=== PATIENT | female | born 1980 | race American Indian/Alaskan Native ===

== ENCOUNTER 2019-07-24 01:30 | Emergency (ER) | payer BC ==
[2019-07-24 03:07] LABS: Hematocrit 26.8 % (30.3-42.9); Hemoglobin 8.1 gm/dl (10.1-14.3); Mean Corpuscular HGB Conc 30 % (30-34); Red Blood Count 4.47 M/mm3 (3.65-5.03)
[2019-07-24 03:14] LABS: BUN/Creatinine Ratio 14; Blood Urea Nitrogen 10 mg/dL (7-17); Calcium 9.2 mg/dL (8.4-10.2); Hemolysis Index 2
[2019-07-24 03:42] LABS: Bacteria,Urine 1+ /HPF (Negative); Bilirubin,Urine NEG (Negative); Blood,Urine NEG (Negative); Color,Urine Yellow (Yellow); Mucus,Urine 3+ /HPF
[2019-07-24 03:43] LABS: Alanine Aminotransferase 6 units/L (7-56); Albumin 4.4 g/dL (3.9-5)
[2019-07-24] MEDS ORDERED: TYLENOL PO ONE (03:43)
[2019-07-24 03:44] LABS: Bilirubin,Direct < 0.2 mg/dL (0-0.2)
--- NOTE | 2019-07-24 04:13 | Emergency Department Report ---
ED Female HPI - General Chief complaint: Vaginal Bleeding Stated complaint: ABD AND BACK PAIN Source: patient Mode of arrival: Ambulatory Limitations: No Limitations - History of Present Illness Initial comments: Patient is a A1 39-year-old -[place] female with a history of hypertension who presents to the ED with complaint of acute onset persistent diffuse lower abdominal pain and vaginal bleeding for the last 12 hours. Patient states that the bleeding was initially very heavy with blood clots and subsequently became mild and just spotting. Patient states that the pain has been persistent since the onset of the bleeding. Patient states that her last major cycle was 06/05/2019 and that she is sexually active and unsure whether she is or not. Patient denies dizziness, headache, chest pain, shortness of breath, nausea, vomiting, diarrhea, cough, sore throat, dysuria, urinary frequency and urgency and vaginal discharge or low back pain. MD Complaint: vaginal bleeding, pelvic pain -: Sudden, hour(s) (12) Location: suprapubic Radiation: non-radiating Severity: severe Severity scale (0 -10): 7 Quality: cramping, sharp, aching Consistency: constant Improves with: none Worsens with: none Are you Now?: No Last Menstrual Period: 06/04/19 EDC: 03/10/20 Associated Symptoms: denies other symptoms, vaginal bleeding, abdominal pain, nausea/vomiting. denies: vaginal discharge, fever/chills, headaches, loss of appetite, dysuria, hematuria, seizure, shortness of breath, syncope, weakness - Related Data Sexually active: Yes : 7 Para: 6 A: 1 Previous Rx's Medication Instructions Recorded Last Taken Type Ferrous Sulfate [Feosol] 325 mg PO QDAY #30 tablet 07/16/16 Unknown Rx Lisinopril [Zestril TAB] 20 mg PO QDAY #30 tablet 07/16/16 Unknown Rx ALBUTEROL Inhaler (OR & NICU) 2 puff IH QID PRN #1 inhalation 09/12/16 Unknown Rx [ProAir HFA Inhaler] Benzonatate [Tessalon Perles] 100 mg PO Q8HR #20 capsule 09/12/16 Unknown Rx HYDROcodone/APAP 5-325 [Moore 1 each PO Q6HR PRN #12 tablet 09/12/16 Unknown Rx 5/325] Nitrofurantoin Bradford/M-Cryst 100 mg PO Q12HR #14 capsule 09/12/16 Unknown Rx [Macrobid CAP] Ibuprofen [Motrin] 600 mg PO Q8H PRN #24 tablet 07/24/19 Unknown Rx Ondansetron [Zofran Odt] 4 mg PO Q6HR PRN #15 tab.rapdis 07/24/19 Unknown Rx cephALEXin [Keflex] 500 mg PO Q8HR #30 cap 07/24/19 Unknown Rx raNITIdine HCl [Zantac] 150 mg PO Q12H #24 tablet 07/24/19 Unknown Rx Allergies Allergy/AdvReac Type Severity Reaction Status Date / Time No Known Allergies Allergy Verified 07/15/16 21:52 ED Review of Systems ROS: Stated complaint: ABD AND BACK PAIN Other details as noted in HPI Constitutional: denies: chills, fever Eyes: denies: eye pain, eye discharge, vision change ENT: denies: ear pain, throat pain Respiratory: denies: cough, shortness of breath, wheezing Cardiovascular: denies: chest pain, palpitations Endocrine: no symptoms reported Gastrointestinal: abdominal pain, nausea. denies: diarrhea Genitourinary: abnormal menses (vaginal bleeding and pain). denies: urgency, dysuria, discharge Musculoskeletal: denies: back pain, joint swelling, arthralgia Skin: denies: rash, lesions Neurological: denies: headache, weakness, paresthesias Psychiatric: denies: anxiety, depression Hematological/Lymphatic: denies: easy bleeding, easy bruising ED Past Medical Hx - Past Medical History Previous Medical History?: Yes Hx Hypertension: Yes (Not taken meds in several months.) Additional medical history: Anemia secondary to heavy menstrual cycle quit taking her iron - Surgical History Past Surgical History?: Yes Additional Surgical History: D&C - Social History Smoking Status: Current Every Day Smoker Substance Use Type: None - Medications Home Medications: Home Medications Medication Instructions Recorded Confirmed Last Taken Type Ferrous Sulfate [Feosol] 325 mg PO QDAY #30 tablet 07/16/16 Unknown Rx Lisinopril [Zestril TAB] 20 mg PO QDAY #30 tablet 07/16/16 Unknown Rx ALBUTEROL Inhaler (OR & NICU) 2 puff IH QID PRN #1 inhalation 09/12/16 Unknown Rx [ProAir HFA Inhaler] Benzonatate [Tessalon Perles] 100 mg PO Q8HR #20 capsule 09/12/16 Unknown Rx HYDROcodone/APAP 5-325 [Moore 1 each PO Q6HR PRN #12 tablet 09/12/16 Unknown Rx 5/325] Nitrofurantoin Bradford/M-Cryst 100 mg PO Q12HR #14 capsule 09/12/16 Unknown Rx [Macrobid CAP] Ibuprofen [Motrin] 600 mg PO Q8H PRN #24 tablet 07/24/19 Unknown Rx Ondansetron [Zofran Odt] 4 mg PO Q6HR PRN #15 tab.rapdis 07/24/19 Unknown Rx cephALEXin [Keflex] 500 mg PO Q8HR #30 cap 07/24/19 Unknown Rx raNITIdine HCl [Zantac] 150 mg PO Q12H #24 tablet 07/24/19 Unknown Rx ED Physical Exam - General Limitations: No Limitations General appearance: alert, in no apparent distress - Head Head exam: Present: atraumatic, normocephalic, normal inspection - Eye Eye exam: Present: normal appearance, PERRL, EOMI Pupils: Present: normal accommodation - ENT ENT exam: Present: normal exam, normal orophraynx, mucous membranes moist, TM's normal bilaterally, normal external ear exam - Neck Neck exam: Present: normal inspection, full ROM - Respiratory Respiratory exam: Present: normal lung sounds bilaterally. Absent: respiratory distress, wheezes, chest wall tenderness, accessory muscle use, decreased breath sounds, prolonged expiratory - Cardiovascular Cardiovascular Exam: Present: regular rate, normal rhythm, normal heart sounds. Absent: systolic murmur, diastolic murmur, rubs, gallop - GI/Abdominal GI/Abdominal exam: Present: soft, tenderness (mildly diffuse lower abdominal tenderness), normal bowel sounds. Absent: guarding, rebound, hyperactive bowel sounds, mass - Bi-manual exam: Present: other (deferred pelvic exam) - Extremities Exam Extremities exam: Present: normal inspection, full ROM, normal capillary refill - Back Exam Back exam: Present: normal inspection, full ROM. Absent: tenderness, CVA tenderness (L), muscle spasm, vertebral tenderness - Neurological Exam Neurological exam: Present: alert, oriented X3, CN II-XII intact, normal gait, reflexes normal - Psychiatric Psychiatric exam: Present: normal affect, normal mood - Skin Skin exam: Present: warm, dry, intact, normal color. Absent: rash ED Course Vital Signs 07/24/19 04:26 Temperature 98.7 F Pulse Rate 68 Respiratory 16 Rate Blood Pressure 124/78 [Left] O2 Sat by Pulse 100 Oximetry - Reevaluation(s) Reevaluation #1: 07/24/19 06:10 This is a 39-year-old -[place] female who presents to the ED with heavy vaginal bleeding and dysmenorrhea for 12 hours. In the ED, patient is alert and oriented 3 and is not in distress. Lab test results are reviewed and show chronic anemia characterized by hemoglobin of 8.1, hematocrit of 26.8 and MCV of 60. The rest of the lab test results are unremarkable including serum hCG test, except for urinalysis that showed significant urinary tract infection. Patient was treated in the ED with pain medication Tylenol and on reevaluation, patient's pain is well controlled with medication, patient sleeping comfortably in the room in no distress. Patient's symptoms are due to dysmenorrhea. Patient was discharged home on antibiotics for acute urinary tract infection and pain medications and advised to follow-up with her primary care physician in 3- 5 days for reevaluation or return to the ED immediately if symptoms get worse. ED Medical Decision Making - Lab Data Result diagrams: 07/24/19 02:32 07/24/19 02:32 - Medical Decision Making This is a 39-year-old -[place] female who presents to the ED with heavy vaginal bleeding and dysmenorrhea for 12 hours. In the ED, patient is alert and oriented 3 and is not in distress. Lab test results are reviewed and show chronic anemia characterized by hemoglobin of 8.1, hematocrit of 26.8 and MCV of 60. The rest of the lab test results are unremarkable including serum hCG test, except for urinalysis that showed significant urinary tract infection. Patient was treated in the ED with pain medication Tylenol and on reevaluation, patient's pain is well controlled with medication, patient sleeping comfortably in the room in no distress. Patient's symptoms are due to dysmenorrhea. Patient was discharged home on antibiotics for acute urinary tract infection and pain medications and advised to follow-up with her primary care physician in 3- 5 days for reevaluation or return to the ED immediately if symptoms get worse. - Differential Diagnosis Dysmenorrhea; acute UTI; chronic iron deficiency anemia Critical care attestation.: If time is entered above; I have spent that time in minutes in the direct care of this critically ill patient, excluding procedure time. ED Disposition Clinical Impression: Nausea and vomiting in adult patient, Acute urinary tract infection, Dysmenorrhea, Chronic iron deficiency anemia Abdominal pain Qualifiers: Abdominal location: generalized Qualified Code(s): R10.84 - Generalized abdominal pain Disposition: TO HOME OR SELFCARE Is pt being admited?: No Does the pt Need Aspirin: No Condition: Stable Instructions: Dysmenorrhea (ED), Urinary Tract Infection in Women (ED) Additional Instructions: Take medication with food, drink plenty of fluids and follow-up with your primary care physician in 7-10 days for reevaluation. Return to the ED immediately if symptoms get worse. Prescriptions: cephALEXin [Keflex] 500 mg PO Q8HR #30 cap Ibuprofen [Motrin] 600 mg PO Q8H PRN #24 tablet PRN Reason: Pain raNITIdine HCl [Zantac] 150 mg PO Q12H #24 tablet Ondansetron [Zofran Odt] 4 mg PO Q6HR PRN #15 tab.rapdis PRN Reason: Nausea Referrals: PRIMARY CARE,MD [Primary Care Provider] - 3-5 Days Time of Disposition: 04:10 Print Language: [id number]
[2019-07-24 04:25] LABS: Mean Corpuscular Volume 60 fl (79-97); Platelet Count 98 K/mm3 (140-440); Red Cell Distribution Width 23.4 % (13.2-15.2)
[2019-07-24 04:27] VITALS: BP 124/78
[2019-07-24 05:18] LABS: Basophils % (Manual) 0 % (0.0-1.8); Monocytes % (Manual) 0 % (0.0-7.3); Total Cells Counted 100
[2019-07-24 05:19] LABS: Anisocytosis 1+; Hypochromasia 1+; Schistocytes Rare; Target Cells Few
[2019-07-24 05:20] LABS: Platelet Estimate Consistent w Auto
== END 2019-07-24 04:25 | disposition home or self-care (01) ==
LOC: ED 01:30
DX: N94.6 Dysmenorrhea, unspecified (principal); N39.0 Urinary tract infection, site not specified; D50.9 Iron deficiency anemia, unspecified; I10 Essential (primary) hypertension; F17.200 Nicotine dependence, unspecified, uncomplicated; Z79.899 Other long term (current) drug therapy
CPT/HCPCS: 36415; 80048; 80076; 81001; 83690; 84703; 85007; 85025; 86900; 86901